=== PATIENT | male | born 1930 | race Caucasian/White ===

== ENCOUNTER → 2016-08-21 | Outpatient (CLI) | payer MEDICARE ==
[2016-08-21 08:44] LABS: BILIRUBIN,URINE Negative (Negative); CLARITY,URINE Clear; COLOR,URINE Yellow; GLUCOSE, URINE (UA) Negative (Negative); LEUKOCYTE ESTERASE, URINE Negative (Negative); UROBILINOGEN,URINE 0.2 mg/dL (0.2-1.0)
[2016-08-21 08:58] LABS: URINE CENTRIFUGED VOLUME 12 mL
[2016-08-21 08:59] LABS: RBC,URINE 0-2 /HPF
== END ==
LOC: LAB 08:22
PROVIDERS: ATTEND Urology
DX: R31.29 Other microscopic hematuria (principal)
CPT/HCPCS: 81003; 81015; 88112

== ENCOUNTER → 2016-09-19 | Outpatient (CLI) | payer MEDICARE ==
[~2016-09-19] MED LIST: ASPI-860 PO; CARV6.25 PO; CITRACAL PO; LATA2.5D5 OP; LSRT50T PO; LTN005OP2 OU; MAGN400T26 PO; METF500T4 PO; NIAC750T PO; OMEG1CAP PO; SIMV80TA2 PO; SIMV80TA3 PO; SITA100T PO; TIMO5DRO26 OP; TRM50T PO
[2016-09-19 10:12] LABS: ANION GAP 18.4 MEQ/L (3-15)
== END ==
LOC: LAB 09:19
PROVIDERS: ATTEND Orthopaedic Surgery
DX: I10 Essential (primary) hypertension (principal)
CPT/HCPCS: 36415; 80048; 93005

== ENCOUNTER 2016-10-01 06:58 | Emergency (ER) | payer MEDICARE ==
[~2016-10-01] VITALS: Ht 172.7 cm; Wt 78.9 kg
[2016-10-01] MEDS ORDERED: SODIUM CHLORIDE FLUSH 10 ML SYR IV PRN (07:25)
[2016-10-01] MEDS ORDERED: SODIUM CHLORIDE FLUSH 3 ML SYR IV ONE (07:25)
[2016-10-01 07:42] LABS: BASOPHILS % (AUTO) 0 % (0-2); EOSINOPHILS # (AUTO) 0.4 10^3uL; EOSINOPHILS % (AUTO) 3 % (0-4); LYMPHOCYTES # (AUTO) 1.5 X10^3; MEAN CORPUSCULAR HEMOGLOBIN 30.2 PG (26.0-34.0); MEAN CORPUSCULAR HGB CONC 33.2 g/dL (31.0-37.0); MEAN CORPUSCULAR VOLUME 91 FL (80-100); MEAN PLATELET VOLUME 11.3 FL (6.0-9.5); MONOCYTES # (AUTO) 0.9 X10^3; MONOCYTES % (AUTO) 7 % (3-11); NEUTROPHILS # (AUTO) 9.3 X10^3; NEUTROPHILS % (AUTO) 77 % (51-67); PLATELET COUNT 172 10^3uL (150-450); WHITE BLOOD COUNT 12.12 10^3uL (4.0-11.0)
[2016-10-01 07:54] LABS: ALBUMIN 4.1 g/dL (3.4-5.0); ANION GAP 16.3 MEQ/L (3-15); CALCULATED IONIZED CALCIUM 4.1 mg/dL (3.8-4.6); TOTAL PROTEIN 7.3 g/dL (6.4-8.5)
[2016-10-01 08:02] LABS: BILIRUBIN,URINE Negative (Negative); CLARITY,URINE Clear; COLOR,URINE Yellow; GLUCOSE, URINE (UA) Trace (Negative); LEUKOCYTE ESTERASE ,URINE Negative (Negative); UROBILINOGEN,URINE 0.2 mg/dL (0.2-1.0)
--- NOTE | 2016-10-01 08:18 | Diagnostic Imaging Report ---
INDICATION: Left lower quadrant pain. COMPARISONS: Two-view chest of 03/24/2015. FINDINGS: Stable left pectoral transvenous pacemaker. Lungs are clear where visualized. Posterior lower lobes are poorly evaluated on frontal imaging. No pleural effusion or pneumothorax. Stable borderline cardiomegaly. Normal pulmonary vasculature. No free intraperitoneal air. Nonobstructive bowel gas pattern. There is a small to moderate amount of colonic stool present. 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 Age-related degenerative changes of the lumbar spine. IMPRESSION: 1. Nonobstructive, nonspecific bowel gas pattern. Small to moderate volume of colonic stool. 2. No acute cardiopulmonary process. Dictated by: Dictated on workstation # [id number]
[2016-10-01 08:39] LABS: URINE CENTRIFUGED VOLUME 12 mL
[2016-10-01 08:40] LABS: RBC,URINE 20-50 /HPF
--- NOTE | 2016-10-01 09:26 | NUR ---
blood pressure cuff placed on pt, pt laying supine with eyes closed
[2016-10-01] MEDS ORDERED: POLYETHYLENE GLYCOL 17 GM (MIRALAX) PACKET PO ONE (09:35)
--- NOTE | 2016-10-01 09:43 | Diagnostic Imaging Report ---
PROCEDURE: CT abdomen and pelvis without contrast. TECHNIQUE: Multiple contiguous axial images were obtained through the abdomen and pelvis without the use of intravenous contrast. INDICATION: Left lower quadrant pain. Leukocytosis. COMPARISON: None available. FINDINGS: Lung bases are clear. No pericardial or pleural effusion. Partially visualized cardiac pacemaker leads. No free intraperitoneal air or fluid. Evaluation of the abdominal viscera is limited without IV contrast. Allowing for this, the liver, gallbladder and spleen are normal. Pancreas is grossly normal on noncontrast imaging. No adrenal mass. There is a partially obstructing 4 mm calculus in the proximal left ureter resulting in mild left proximal hydroureter and hydronephrosis. There is an incidental punctate nonobstructing calculus in the mid left kidney. No right renal or ureteral calculi. Urinary bladder is decompressed, limiting evaluation. Prostate is not enlarged. No bowel obstruction. Stomach is decompressed, limiting evaluation for wall thickening. Sigmoid colon diverticulosis without evidence of active diverticulitis. Moderate volume of colonic stool is present. The appendix is normal. Normal caliber abdominal aorta with scattered atherosclerotic calcifications. No abdominal or pelvic lymphadenopathy. Right total hip arthroplasty. No concerning focal osseous lesions. IMPRESSION: 1. There is a partially obstructing 4 mm calculus in the proximal left ureter resulting in mild left hydronephrosis and hydroureter. 2. Sigmoid colon diverticulosis without diverticulitis. Dictated by: Dictated on workstation # [id number]
[2016-10-01] MEDS ORDERED: TAMS-8 PO (09:59)
[2016-10-01] MEDS ORDERED: HYDR-3702 PO (09:59)
[2016-10-01] MEDS ORDERED: POLY17PO6 PO (09:59)
[2016-10-01] MEDS ORDERED: ONDA4TAB8 PO (09:59)
[2016-10-01] MEDS ORDERED: TAMSULOSIN 0.4 MG (FLOMAX) CAP PO ONE (10:00)
[2016-10-01] MEDS ORDERED: KETOROLAC 30 MG/ML (TORADOL) 1 ML VIAL IV ONE (10:00)
[2016-10-01 10:15] VITALS: BP 131/69
== END 2016-10-01 10:17 | disposition home or self-care (01) ==
LOC: EDUNIT# 06:58 → ED 07:00
DX: N13.2 Hydronephrosis with renal and ureteral calculous obstruction (principal); R19.4 Change in bowel habit; R10.32 Left lower quadrant pain
CPT/HCPCS: 36415; 74022; 74176; 80053; 81003; 81015; 82274; 83690; 85025; 86140; 96361; 96374; 99284; A9270; J1885; J7030; 99283

== ENCOUNTER → 2016-10-06 | Emergency (ER) | payer MEDICARE ==
[~2016-10-06] VITALS: Ht 165.1 cm; Wt 81.5 kg
[~2016-10-06] MED LIST changes: +HYDR-3702 PO; +KETOROLAC 30 MG/ML (TORADOL) 1 ML VIAL IV ONE; +ONDA4TAB8 PO; +ONDANSETRON 2 MG/ML (Z0FRAN) 2 ML VIAL IV STA; +POLY17PO6 PO; +SODIUM CHLORIDE FLUSH 10 ML SYR IV PRN; +SODIUM CHLORIDE FLUSH 3 ML SYR IV PRN; +TAMS-8 PO
[2016-10-06 14:43] VITALS: BP 152/68
[2016-10-06 15:37] LABS: ANION GAP 16.2 MEQ/L (3-15)
--- NOTE | 2016-10-06 15:37 | Diagnostic Imaging Report ---
INDICATION: Left lower quadrant abdominal pain. EXAM: Supine and upright abdominal radiographs are performed. FINDINGS: There is no free air. The abdominal gas pattern is normal. No bowel wall thickening is seen. No organomegaly. Degenerative changes and scoliosis are present in the spine. A total cemented right hip arthroplasty is present. Degenerative changes present in the left hip. IMPRESSION: No acute finding. Dictated by: Dictated on workstation # [id number]
[2016-10-06 16:37] LABS: BILIRUBIN,URINE Negative (Negative); CLARITY,URINE Clear; COLOR,URINE Yellow; GLUCOSE, URINE (UA) Negative (Negative); LEUKOCYTE ESTERASE ,URINE Negative (Negative); PH,URINE 5.5 (5.0 - 8.0); UROBILINOGEN,URINE 0.2 mg/dL (0.2-1.0)
[2016-10-06 16:41] LABS: RBC,URINE 0-2 /HPF; URINE CENTRIFUGED VOLUME <10mL Unspun
== END | disposition home or self-care (01) ==
LOC: EDUNIT# 14:32 → ED 14:34
DX: N20.1 Calculus of ureter (principal)
CPT/HCPCS: 36415; 74020; 80048; 81003; 81015; 96361; 96374; 96375; 99283; J1885; J2405; J7030

== ENCOUNTER → 2016-11-10 | Outpatient (CLI) | payer MEDICARE ==
[~2016-11-10] MED LIST changes: -KETOROLAC 30 MG/ML (TORADOL) 1 ML VIAL IV ONE; -ONDANSETRON 2 MG/ML (Z0FRAN) 2 ML VIAL IV STA; -SODIUM CHLORIDE FLUSH 10 ML SYR IV PRN; -SODIUM CHLORIDE FLUSH 3 ML SYR IV PRN
--- NOTE | 2016-11-10 13:45 | Diagnostic Imaging Report ---
INDICATION: Hematuria. Left kidney stones. EXAMINATION: Ultrasound renal bilateral on 11/10/2016. FINDINGS: Grayscale and color Doppler ultrasound imaging of the kidneys was performed. The right kidney is 9.4 cm in greatest dimension and the left is 10.9. There is no hydronephrosis on either side with no solid or cystic masses appreciated. The bladder was not well evaluated as it was empty at the time of scanning. IMPRESSION: Unremarkable appearance of the kidneys. Dictated by: Dictated on workstation # [id number]
== END ==
LOC: RAD 08:16
PROVIDERS: ATTEND Urology
DX: R31.0 Gross hematuria (principal)
CPT/HCPCS: 76770